=== PATIENT | female | born 1980 | race Native Hawaiian/Other Pacific Islander ===

== ENCOUNTER 2019-11-15 13:53 | Outpatient (CLI) | payer OTHER | END 2019-11-15 19:50 | disposition home or self-care (01) | LOC: MAMMO 13:53 | DX: N64.52 Nipple discharge (principal) ==

== ENCOUNTER 2019-12-25 11:33 | Outpatient (CLI) | payer OTHER | END 2019-12-25 20:38 | disposition home or self-care (01) | LOC: LABW 11:33 | DX: R50.9 Fever, unspecified (principal) | CPT/HCPCS: 87502; 87651 ==

== ENCOUNTER 2022-01-12 13:00 | Outpatient (CLI) | payer OTHER | END 2022-01-12 19:46 | disposition home or self-care (01) | LOC: MAMMO 13:00 | PROVIDERS: ATTEND Nurse Practitioner Primary Care | DX: N60.09 Solitary cyst of unspecified breast (principal) ==

== ENCOUNTER 2022-03-15 12:57 | Outpatient (CLI) | payer BC | END 2022-03-15 19:02 | disposition home or self-care (01) | LOC: US 12:57 | PROVIDERS: ATTEND Nurse Practitioner Family | DX: N63.11 Unspecified lump in the right breast, upper outer quadrant (principal) ==

== ENCOUNTER 2022-11-04 14:20 | Outpatient (CLI) | payer BC | END 2022-11-04 21:47 | disposition home or self-care (01) | LOC: MRI 14:20 | PROVIDERS: ATTEND Nurse Practitioner Family | DX: H47.099 Other disorders of optic nerve, not elsewhere classified, unspecified eye (principal) | CPT/HCPCS: A9576 ==

== ENCOUNTER 2022-11-19 12:34 | Outpatient (CLI) | payer BC | END 2022-11-19 21:23 | disposition home or self-care (01) | LOC: MRI 12:34 | PROVIDERS: ATTEND Nurse Practitioner Family | DX: H47.099 Other disorders of optic nerve, not elsewhere classified, unspecified eye (principal) ==

== ENCOUNTER 2023-11-01 12:31 | Outpatient (CLI) | payer BC | END 2023-11-01 19:30 | disposition home or self-care (01) | LOC: MRI 12:31 | PROVIDERS: ATTEND Family Medicine | DX: R10.2 Pelvic and perineal pain (principal) | CPT/HCPCS: A9576 ==